=== PATIENT | male | born 1990 | race Caucasian/White ===

== ENCOUNTER 2017-08-06 15:03 | Emergency (ER) | payer OTHER ==
[2017-08-06 15:14] VITALS: BP 111/55; PULSE 56; RESP 16; TEMP 98.5; O2SAT 100
[2017-08-06] MEDS ORDERED: valACYclovir HCL 500 MG TAB PO ONE (16:00)
[2017-08-06] MEDS ORDERED: predniSONE 20 MG TAB PO ONE (16:00)
[2017-08-06] MEDS ORDERED: IBUPROFEN 800 MG TAB PO ONE (16:00)
[2017-08-06] MEDS ORDERED: TETANUS/DIPHTHERIA TOXOID ADULT 0.5 ML VIAL IM ONE (16:00)
--- NOTE | 2017-08-06 16:12 | PD ---
Data Data Last Documented VS Vital Signs Date Time Temp Pulse Resp B/P (MAP) Pulse Ox O2 Delivery O2 Flow Rate FiO2 08/06/17 15:14 98.5 56 16 111/55 (73) 100 Orders Orders Valacyclovir (Valtrex) (08/06/17 16:00) Prednisone (Deltasone) (08/06/17 16:00) Ibuprofen (Motrin) (08/06/17 16:00) Tetanus/Diphtheria Tox Adult (Tetanus/Di (08/06/17 16:00) Ed Discharge Order (08/06/17 17:10) MDM Supervised Visit with DESIRE: Yes Narrative Course I, Dr. Adame, have reviewed the advance practice practitioner's documentation and am in agreement, met with the patient face to face, made the diagnosis, and the medical decision making was done by me. *My assessment and Findings: Patient seen and examined by me in addition to Jenn MANN. Patient has not history of running and running through a spider web he thought that initially he got bit on the back of his neck, he presents today with a five-day history of Hadley's palsy-like symptoms involving the left face. I think that if this was a spider bite he has been bitten the area that is not going to lead to his current neurologic findings. He does have some scattered scabs on the left side of his scalp posteriorly. None anteriorly. I think that his symptoms are more in line with a Hadley's palsy/ shingles/Jake Valencia syndrome. His TM was clear for me. Will sustain him for possible ocular involvement and the patient will be discharged to follow-up with ENT. I discussed with him eye hygiene to prevent eye injury. Scripts Tramadol (Tramadol) 50 Mg Tab 50 MG PO Q4H Y for PAIN, #10 TAB 0 Refills Prov: Yvonne SanabriaP 08/06/17 Ibuprofen (Ibuprofen) 800 Mg Tab 800 MG PO Q6HR Y for PAIN, #30 TAB 0 Refills Prov: Yvonne SanabriaP 08/06/17 Prednisone (Prednisone) 10 Mg Tab 10 MG PO DIRECTED for 10 Days, #45 TAB 0 Refills Take 6 pills 08/07/2017 Take 6 pills 08/08/2017 Take 6 pills 08/09/2017 Take 6 pills 08/10/2017 Take 6 pills 08/11/2017 Take 5 pills Take 4 pills 08/12/2017 Take 3 pills Take 2 pills 08/14/2017 Take 1 pill 08/15/2017 Prov: Yvonne Sanabria 08/06/17 Valacyclovir (Valacyclovir) 1,000 Mg Tab 1000 MG PO TID for Mgmt Viral Infection for 7 Days, TAB 0 Refills Prov: Yvonne Sanabria 08/06/17 Disposition: 01 DISCHARGE HOME Condition: Stable Cristopher Adame MD Aug 06, 2017 16:11
[2017-08-06] MEDS ORDERED: VALA1TAB PO (16:13)
[2017-08-06] MEDS ORDERED: PRED10 PO (16:13)
[2017-08-06] MEDS ORDERED: IBUP1TAB7 PO (16:13)
--- NOTE | 2017-08-06 16:18 | PD ---
HPI Chief Complaint: Medical Clearance Time Seen by Provider: 15:37 Travel History International Travel<30 days: No Contact w/Intl Traveler<30days: No Traveled to known affect area: No History of Present Illness HPI 26-year-old male presents to the emergency department with complaint of left- sided facial droop that started around August 01. On July 26 he says he was out running and he ran through a large cobweb and thinks he may have been bit by an insect or spider to the left side of his neck. He did not feel anything bite him or see anything. On July 30 he started feeling numbness and tingling to the left side of his face and a rash to his left neck and scalp area. He was seen at urgent care on July 31 and was treated with Bactrim, which he is currently taking. The facial droop and weakness started around August 01. He went to [facility] today for follow-up and they told him to come to the emergency department with concern of Hadley's palsy. He denies fever, vomiting. Denies focal deficits or weakness, slurred speech, change in mentation, confusion, disorientation. Denies lightheadedness, dizziness, headache. Is complaining of left neck pain and ear pain. Has been taking ibuprofen with good relief of symptoms. Has also been taking the Bactrim. Rates pain 5/10 and describes it as a burning sensation. Unknown tetanus status. Allergies to Compazine. Denies significant past medical history. Has no other medical complaints. No other modifying factors or associated signs and symptoms. PFSH Social History Tobacco Use: No Allergies-Medications (Allergen,Severity, Reaction): Coded Allergies: prochlorperazine (Verified Allergy, Unknown, 08/06/17) Reported Meds & Prescriptions Reported Meds & Active Scripts Active Tramadol (Tramadol HCl) 50 Mg Tab 50 Mg PO Q4H PRN Ibuprofen 800 Mg Tab 800 Mg PO Q6HR PRN Prednisone 10 Mg Tab 10 Mg PO DIRECTED 10 Days Take 6 pills 08/07/2017 Take 6 pills 08/08/2017 Take 6 pills 08/09/2017 Take 6 pills 08/10/2017 Take 6 pills 08/11/2017 Take 5 pills Take 4 pills 08/12/2017 Take 3 pills Take 2 pills 08/14/2017 Take 1 pill 08/15/2017 Valacyclovir (Valacyclovir HCl) 1,000 Mg Tab 1,000 Mg PO TID 7 Days Review of Systems Except as stated in HPI: all other systems reviewed are Neg Physical Exam Narrative GENERAL: Well-nourished, well-developed male patient, in no acute distress SKIN: Warm and dry. Scabbed pinpoint scattered rash noted to left neck, left lateral posterior scalp, left upper back that may be consistent with shingles rash. HEAD: Atraumatic. Normocephalic. Left-sided facial droop noted. No left sided forehead wrinkles noted with lifting eyebrows. Unable to close left eye completely with facial squinching. Sensory intact bilaterally, but different sensation to Left side. Tongue midline. EYES: Pupils equal and round at 4 mm with brisk reaction. No scleral icterus. No injection or drainage. PERRLA. EOMI. Duran lamp exam of left eye is normal and there are no dendritic lesions noted. ENT: Mucosa pink and moist. Airway patent. EARS: Bilateral pinnae and external canals appear within normal limits. Bilateral tympanic membranes without erythema, dullness or perforation. NECK: Trachea midline. No lymphadenopathy. CARDIOVASCULAR: Regular rate. RESPIRATORY: No accessory muscle use. GASTROINTESTINAL: Flat. MUSCULOSKELETAL: No obvious deformities. No clubbing. No cyanosis. No edema. NEUROLOGICAL: Awake and alert. Oriented 4. No obvious cranial nerve deficits. Motor grossly within normal limits. Normal speech. Sensory intact and equal bilaterally. Moves all extremities. 5/5 strength to all extremities. PSYCHIATRIC: Appropriate mood and affect; insight and judgment normal. Data Data Last Documented VS Vital Signs Date Time Temp Pulse Resp B/P (MAP) Pulse Ox O2 Delivery O2 Flow Rate FiO2 08/06/17 15:14 98.5 56 16 111/55 (73) 100 Orders Orders Valacyclovir (Valtrex) (08/06/17 16:00) Prednisone (Deltasone) (08/06/17 16:00) Ibuprofen (Motrin) (08/06/17 16:00) Tetanus/Diphtheria Tox Adult (Tetanus/Di (08/06/17 16:00) Ed Discharge Order (08/06/17 17:10) [facility] Medical Decision Making Medical Screen Exam Complete: Yes Emergency Medical Condition: Yes Medical Record Reviewed: Yes Differential Diagnosis Hadley's palsy, shingles, insect bite, trigeminal neuralgia Narrative Course 26-year-old male physical exam consistent with possible shingles rash to the left neck area and left-sided facial droop, consistent with Hadley's palsy. Dr. Adame evaluated the patient and agrees with my findings and plan of care. Tetanus updated in the ER. Deltasone 60 mg, valacyclovir 1000 mg administered in the ER. Ibuprofen ordered. I performed an eye exam with the Duran lamp and there is no dendritic lesions noted. Tramadol, ibuprofen, valacyclovir, prednisone taper prescribed for home. Instructed patient to follow-up with primary care and ear nose throat specialist. Work release provided. Instructed patient to follow up with primary care provider. Patient verbalizes understanding and agreement with treatment plan. Patient is medically cleared and stable for discharge. Discussed reasons to return to the emergency department. Patient agrees with treatment plan. The patients vital signs are stable and the patient is stable for outpatient follow-up and treatment. Patient discharged home, stable and in no acute distress. Diagnosis Primary Impression: Shingles Qualified Codes: B02.8 - Zoster with other complications Additional Impression: Hadley's palsy Referrals: Ear / Nose / Throat Specialist [facility] Primary Care [facility] Primary Care Physician Patient Instructions: Hadley Palsy (ED), General Instructions, Insect Bite or Sting (ED), Shingles (ED) Departure Forms: Tests/Procedures, Work Release Enter return to work date: August 20, 2017 Additional Instructions: Ibuprofen or Tylenol as directed and as needed for pain If this is shingles it is contagious Good hand hygiene Tord-hyx-fankagy artificial tears and liquid, gel, or ointment and tape eye closed at night Use artificial tears throughout the day to keep the eye lubricated Follow-up with ear nose throat Follow-up primary care provider Return to the emergency department immediately with worsening of symptoms Med/Other Pt SpecificInfo: Prescription(s) given Scripts Tramadol (Tramadol) 50 Mg Tab 50 MG PO Q4H Y for PAIN, #10 TAB 0 Refills Prov: Yvonne Sanabria [employer] 08/06/17 Ibuprofen (Ibuprofen) 800 Mg Tab 800 MG PO Q6HR Y for PAIN, #30 TAB 0 Refills Prov: Yvonne SanabriaP 08/06/17 Prednisone (Prednisone) 10 Mg Tab 10 MG PO DIRECTED for 10 Days, #45 TAB 0 Refills Take 6 pills 08/07/2017 Take 6 pills 08/08/2017 Take 6 pills 08/09/2017 Take 6 pills 08/10/2017 Take 6 pills 08/11/2017 Take 5 pills Take 4 pills 08/12/2017 Take 3 pills Take 2 pills 08/14/2017 Take 1 pill 08/15/2017 Prov: Yvonne Sanabria 08/06/17 Valacyclovir (Valacyclovir) 1,000 Mg Tab 1000 MG PO TID for Mgmt Viral Infection for 7 Days, TAB 0 Refills Prov: Yvonne Sanabria 08/06/17 Disposition: 01 DISCHARGE HOME Condition: Stable Yvonne Sanabria Aug 06, 2017 16:18
[2017-08-06] MEDS ORDERED: TRAM50TA PO (16:19)
== END 2017-08-06 17:48 | disposition home or self-care (01) ==
LOC: NEPD 15:03
DX: B02.8 Zoster with other complications (principal); G51.0 Bell's palsy; M54.2 Cervicalgia; H92.02 Otalgia, left ear; Z23 Encounter for immunization
CPT/HCPCS: 90471; 90714; 99283; J7512